=== PATIENT | male | born 1970 | race American Indian/Alaskan Native ===

== ENCOUNTER 2024-05-27 10:39 | Emergency (ER) | payer OTHER, SELFPAY ==
[2024-05-27 11:04] VITALS: BP 133/95
[2024-05-27 12:00] VITALS: BP 134/65
--- NOTE | 2024-05-27 13:01 | ED.GENMED ---
History of Present Illness
General
Chief Complaint: DVT/Possible Blood Clot
Source: patient
Exam Limitations: none
Time Seen by Provider: 05/27/24 11:16
Nursing documentation reviewed up to this point in time: agreed with
History of Present Illness
History of Present Illness:
54-year-old male past medical history of hypertension presenting to the emergency department today with concerns of discomfort to his left calf over the past few days he is also noted some swelling to his left leg but claims this is somewhat
chronic. Denies any chest pain shortness of breath or history of blood clots. Did have a previous left-sided GSV closure in the past.
Review of Systems
Review of Systems
Allergies reviewed?: Yes
All Other Systems: ROS reviewed and negative except as documented in HPI and ROS
Phy Exam
Physical Exam
Physical Exam:
GENERAL: Alert , in no apparent distress
EYE: pupils equal and reactive
NECK: Supple, no significant adenopathy.
ENT: o/p clr, mmm.
CARDIAC: Regular rate and rhythm .
LUNGS: Clear breath sounds bilaterally, no acute respiratory distress, no wheezes/rales/rhonchi
ABDOMEN: Soft, without focal tenderness, no r/g, no cvat
NEUROLOGICAL: Alert and oriented, no focal neuro deficits
SKIN: Warm and dry, skin intact.
MUSCULOSKELETAL: Very subtle swelling to the left leg mainly to the calf region without redness or warmth good range of motion and strength throughout the lower extremities bilaterally. Well perfused.
PSYCH: Normal and appropriate interaction.
Course
Orders/Labs/Results
Orders:
Orders
05/27/24 11:08
US Legs, Left [US Periph Venous LOWER Ext LT] Urgent
Comment:
Reason For Exam: pain and swelling
05/27/24 12:48
Montrell Wrap Left-Treatment ONCE
Vital Signs
Initial and Last Documented VS:
Initial Vital Signs
Temp Pulse Resp BP Pulse Ox
98.5 F 76 18 133/95 97
05/27/24 11:04 05/27/24 11:04 05/27/24 11:04 05/27/24 11:04 05/27/24 11:04
Last Documented Vital Signs
Temp Pulse Resp BP Pulse Ox
98.5 F 80 20 134/65 99
05/27/24 11:04 05/27/24 12:00 05/27/24 12:00 05/27/24 12:00 05/27/24 12:00
MDM/Problems Addressed
MDM/Problems Addressed:
54-year-old male presenting to the emergency department today with concerns of left leg swelling and discomfort mainly to the left calf. No specific injury. Denies chest pain shortness of breath or any risk factors for blood clot. Vital signs
normal upon arrival ultrasound without signs of blood clot. Patient with discomfort mainly to the gastrocnemius with increased discomfort with stretch of the gastrocnemius. Patient with likely muscle strain plan for symptomatic treatment and close
outpatient follow-up. Return precautions given.
*Critical Care Note
Total Time (30-74mins, 75-104mins- exclusive of procedures): Not Applicable
ED Attending Note
-
Portions of this chart may have been created with voice recognition software.� Occasional wrong word or��sound alike� substitutions may have occurred due to the inherent limitations of voice recognition software.
Discharge Plan
Departure
Patient Disposition: Home (Routine Discharge)
Date of Disposition: 05/27/24
Time of Disposition: 13:02
Patient with high blood pressure during this ER visit?: No
Condition: Good
Covid-19: Not Applicable
Discharge Problem:
Strain of calf muscle
Instructions: Muscle Strain ED
Referrals:
PRIVATE,PHYSICIAN [Family Provider] -
Activity Restrictions/Additional Instructions:
You came to the emergency department today with concerns of left-sided calf discomfort. This is likely muscle strain. No evidence of DVT. Please rest ice compress and elevate to help with symptoms. Return to the emergency department for any
worsening, new or concerning symptoms. Otherwise follow-up closely with orthopedics or your primary care doctor in the next week or 2.
Interventions
Interventions:
*Risk Screen - Suicide Last Done: 05/27/24 11:05
*General Assessment Last Done: 05/27/24 11:05
*Neglect/Abuse Screening Last Done: 05/27/24 11:05
ED- Cardiac Assessment Last Done: 05/27/24 12:00
ED- Pulmonary Assessment Last Done: 05/27/24 12:00
ED-Peripheral Vascular Assessment Last Done: 05/27/24 12:00
ED-Skin Assessment Last Done: 05/27/24 12:00
Discharge Date and Time
Print Language: MOSOT[place]
== END 2024-05-27 13:06 | disposition home or self-care (01) ==
LOC: EMR 10:39
PROVIDERS: EMERGENCY PHYSICIAN Emergency Medicine
DX: S86.112A Strain of other muscle(s) and tendon(s) of posterior muscle group at lower leg level, left leg, initial encounter (principal); X58.XXXA Exposure to other specified factors, initial encounter; I10 Essential (primary) hypertension
CPT/HCPCS: 99284; 93971